=== PATIENT | male | born 1945 | race Caucasian/White ===

== ENCOUNTER 2022-04-23 16:14 | Emergency (ER) | payer MEDICARE, OTHER ==
[~2022-04-23 16:14] MED LIST: ASPIRIN EC81 MG PO; ATORVASTATIN CA80 MG PO; BACTRIM DS TAB1 EACH PO; BENTYL10 MG PO; FLOMAX 0.4 MG0.4 MG PO; HYDROCODONE-APA1 TAB PO; METRONIDAZOLE500 MG PO; NORVASC5 MG PO; PLAVIX75 MG PO; TOPROL XL 50 MG50 MG PO; ZOFRAN4 MG PO
[2022-04-23 16:41] LABS: BASOPHIL 0.8 % (0-2); EOSINOPHIL 3.3 % (0-7); HCT 40.2 % (42.0-52.0); HGB 13.4 g/dl (13.2-18.0); LYMPHOCYTE 18.6 % (15-48); MCH 30.4 pg (25.0-31.0); MCHC 33.3 g/dL (32.0-36.0); MCV 91.2 fL (78.0-100.0); MONOCYTE 11.5 % (0-12); MPV 12.4 fL (6.0-9.5); NEUTROPHIL 65.4 % (41-80); NRBC 0; PLT 139 K/uL (150-400); RBC 4.41 M/uL (4.70-6.00); WBC 8.5 K/uL (4.0-10.5)
[2022-04-23 16:49] LABS: INR 0.95 (0.9-1.2); PROTHROMBIN TIME 12.4 SECONDS (11.9-13.9); PTT 21.4 SECONDS (24.9-34.6)
[2022-04-23 18:04] LABS: ALBUMIN 3.7 g/dL (3.4-5.0); BILIRUBIN - TOTAL 0.5 mg/dL (0.2-1.0); BUN/CREAT RATIO (CALC) 16.1 RATIO; CREATININE 1.61 mg/dL (0.67-1.17); GLOBULIN (CALCULATION) 3.7 g/dL; POTASSIUM 4.5 mmol/L (3.5-5.1); TOTAL PROTEIN 7.4 g/dL (6.4-8.2)
[2022-04-23] MEDS ORDERED: NORCO 5-325 TA1 EACH PO (19:03)
== END 2022-04-23 20:24 | disposition home or self-care (01) ==
LOC: FER 16:14
PROVIDERS: Emergency Medicine
DX: R06.02 Shortness of breath (principal); M54.9 Dorsalgia, unspecified; R07.9 Chest pain, unspecified; I25.2 Old myocardial infarction; I25.10 Atherosclerotic heart disease of native coronary artery without angina pectoris; I11.9 Hypertensive heart disease without heart failure; Z95.5 Presence of coronary angioplasty implant and graft; Z28.311 Partially vaccinated for COVID-19
CPT/HCPCS: 36415; 71045; 80053; 83880; 84484; 85025; 85610; 85730; 93005